=== PATIENT | female | born 1995 | race Caucasian/White ===

== ENCOUNTER 2017-06-15 20:32 | Emergency (ER) | payer OTHER ==
[~2017-06-15] VITALS: Ht 162.6 cm; Wt 51.8 kg
[~2017-06-15 20:32] MED LIST: DOCU-41 PO; FERR-83 PO; IBUP-1827 PO; OXYC-474 PO
[2017-06-15 20:48] VITALS: BP 124/75; PULSE 107; RESP 20; O2SAT 100
--- NOTE | 2017-06-15 23:03 | ED.REPORT ---
HPI-Dental/Mouth Prob Date of Service Jun 15, 2017 ED Provider: Jose Ramon Merino DO The pt is a 21 y/o female with a history of poor dentition who presents to the ED complaining of bilateral lower wisdom tooth pain that radiates up to her ears and head, onset few days ago. The pt has been taking ibuprofen, aleve and Tylenol but experienced minimal relief. She denies dental drainage and pus. Nursing Notes Stated Complaint: TOOTH/JAW/EAR PAIN Chief Complaint: Dental Nursing Notes Reviewed: Yes Allergies: Coded Allergies: hydrocodone (Verified Allergy, Severe, hives and vomiting, 06/15/17) No Known Allergies (Verified Allergy, Unknown, 04/18/15) Scheduled Ferrous Sulfate (Ferrous Sulfate) 325 Mg Tablet 325 MG PO DAILY Scheduled PRN Docusate Sodium (Colace) 100 Mg Capsule 100 MG PO BID PRN PRN For Constipation Ibuprofen (Ibuprofen) 600 Mg Tablet 600 MG PO Q6H prn PRN PRN For Pain Oxycodone (Roxicodone) 5 Mg Tablet 5-10 MG PO Q3-4H PRN PRN For Pain General Time Seen by MD: 22:55 Chief Complaint Tooth pain Hx Obtained From: Patient Arrived By: Walk-in Onset Occurred: 3 days ago Symptom Duration: Since onset Location: : Tooth lower L molar: Tooth lower R molar Quality: Painful Radiation: : Ear left: Ear right Severity: Current: Severe Severity: Maximum: Severe Recent Healthcare: No recent doctor visit Past Medical History Past Medical History none reported Past Surgical History none reported Smoking History Current Every Day Smoker Social History Alcohol Use: Denies alcohol use Drug Use: Denies drug use 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 Physical Exam Initial Vital Signs Vital Signs (First) Date Time Temp Pulse Resp B/P Pulse Ox O2 Delivery O2 Flow Rate FiO2 06/15/17 20:48 37.2 107 20 124/75 100 Room Air Initial VS: Reviewed Head / Eyes: Atraumatic, Normocephalic Abdomen / GI: No guarding, No distention Extremities: Vascular intact, Neuro intact, No swelling, No tenderness Skin: Warm, Dry, No cyanosis Neurologic: Alert, Oriented, Nonfocal ENT: Atraumatic, Airway patent, Mucous membranes moist, Pharynx NL Extensive dental decay Tooth fracture of tooth #32 Neck: Atraumatic, Supple, Full range of motion, No swelling, Non-tender General/Constitutional: Awake, Alert, Cooperative Distress / Hydration: Positive: Distress moderate Re-Eval/Medical Decision Med Decision/Clinical Course There is no obvious abscess, but given the severity of the patient's pain and her poor dentition, there may certainly be an infectious component to her pain. She is treated with antibiotics and a small supply of pain medications to help with severe pain, advised to use Tylenol/ibuprofen for baseline pain, and follow-up promptly with her dentist. List of local dental providers was given today. Patient understands and agrees with plan. Re-Evaluation/Progress : Time of Eval: 23:17 Re-Evaluation/Progress Note: Discussed diagnosis and plan to discharge. Pt understands and agrees with the plan. F/U instruction and RTER warning given. All questions addressed. Counseled Regarding: Diagnosis, Need for follow-up, When/why to return to ED Discharge & Departure Primary Impression: Toothache Additional Impression: Dental caries Disposition: Home Discharge Condition All VS Reviewed: Yes Condition: Stable Patient Instructions: Dental Caries (ED) Additional Instructions: Please use the antibiotics as prescribed as well as the Percocet as needed for breakthrough pain. Use ibuprofen/Tylenol as needed for baseline pain. Please follow up with one of the dental providers early next week listed on the discharge paperwork today. Referrals: Loyda Ch DO (PCP) Scribe Attestation Portions of this note were transcribed by Katy Sandhu. I,, personally performed the history,physical exam and medical decision-making;I reviewed and confirmed the accuracy of the information in the transcribed note. Signed by Larisa Peterson. 06/15/17 copies to: Loyda Ch Gary R DO Jun 15, 2017 23:03 Katy Sandhu Jun 15, 2017 23:55
[2017-06-15] MEDS ORDERED: HYDROcodone-APAP 5-325 mg Tablet PO ONE (23:05)
[2017-06-15] MEDS ORDERED: _oxyCODONE/APAP 5-325 mg Tablet PO PRN (23:10)
[2017-06-15 23:30] VITALS: BP 113/62; PULSE 83; RESP 16; O2SAT 99
[2017-06-16] MEDS ORDERED: _Amoxicillin 500 mg Capsule PO SCH (08:30)
== END 2017-06-15 23:38 | disposition home or self-care (01) ==
LOC: SED 20:32
DX: K08.89 Other specified disorders of teeth and supporting structures (principal); K02.9 Dental caries, unspecified; F17.200 Nicotine dependence, unspecified, uncomplicated; Z88.5 Allergy status to narcotic agent